=== PATIENT | female | born 1945 | race Caucasian/White ===

== ENCOUNTER 2019-06-24 11:38 | Inpatient (IN) ==
[2019-06-24] MEDS ORDERED: Naloxone 0.4 MG/ML INJ IVP PRN (14:19)
[2019-06-24 14:21] LABS: Basophils % 0.2 %; Hematocrit 31.5 % (35.3-44.9); Immature Granulocytes % 0.6 % (0-4); Lymphocytes # 0.6 K/mcL (0.6-4.6); Lymphocytes % 5.5 %; Mean Corpuscular HGB Conc 31.7 g/dL (31.6-35.5); Mean Corpuscular Hemoglobin 31.4 pg (28.0-33.3); Mean Corpuscular Volume 99.1 fL (83.0-100.0); Mean Platelet Volume 10.1 fL (9.4-12.4); Monocytes # 0.4 K/mcL (0.0-1.3); Neutrophils # 9.7 K/mcL (1.6-8.9); Platelet Count 215 K/mcL (140-400); Red Blood Count 3.18 M/mcL (3.82-4.97); Segmented Neutrophils % 89.7 %; White Blood Count 10.8 K/mcL (4.3-11.1)
[2019-06-24 14:44] LABS: Acetaminophen < 10 mcg/mL (10-20); Alanine Aminotransferase 30 Units/L (7-52); Albumin 3.9 g/dL (3.5-5.7); Albumin/Globulin Ratio 1.4 (1.1-2.2); Alkaline Phosphatase 116 Units/L (34-104); Aspartate Amino Transferase 31 Units/L (13-39); BUN/Creatinine Ratio 23 (6-26); Bilirubin,Total 0.4 mg/dL (0.3-1.0); Blood Urea Nitrogen 88 mg/dL (8-23); Calcium 8.7 mg/dL (8.6-10.3); Carbon Dioxide 17 mEq/L (23-29); Chloride 98 mEq/L (98-107); Ethanol < 10 mg/dL (Less than 10); Globulin 2.7 g/dL (2.4-3.5); Glucose 363 mg/dL (70-105); Osmolality,Calculated 312 (280-300); Potassium 4.2 mEq/L (3.5-5.1); Salicylate < 2.5 mg/dL (15.0-30.0); Sodium 130 mEq/L (136-145); Total Protein 6.6 g/dL (6.4-8.9); eGFR For African Americans 14 (> 60); eGFR For Non-African Americans 11 (> 60)
[2019-06-24] MEDS ORDERED: Insulin Regular, Human 100 UNIT/ML IV PRN (14:56)
[2019-06-24] MEDS ORDERED: *HR* Dextrose 50 % in Water (Syg) 50 ML SYRINGE IVP PRN (14:56)
[2019-06-24] MEDS ORDERED: D5% in 0.45% NACL 1,000 ML IVC PRN (14:56)
[2019-06-24] MEDS ORDERED: Insulin Human Regular 100 UNIT in 0.9 % Sodium Chloride 100 ML IVC SCH ×2 (15:00→18:00)
[2019-06-24] MEDS ORDERED: *HR* Heparin 5,000 UNIT/ML VIAL IVP PRN ×2 (16:25)
[2019-06-24] MEDS ORDERED: *HR* Heparin 5,000 UNIT/ML VIAL IVP ONE (16:25)
[2019-06-24 16:43] LABS: ABG Base Excess -5 mEq/L (-2 to 3); ABG HCO3 20 mEq/L (21-27); ABG Oxygen Saturation 94 % (95-98); ABG PCO2 35 mmHg (35-45); ABG PH 7.37 pH Units (7.32-7.45); ABG PO2 72 mmHg (85-104); ABG TCO2 21 mEq/L (20-26)
[2019-06-24 16:51] LABS: Bilirubin,Urine Negative (Negative); Blood,Urine Trace (Negative); Clarity,Urine Clear (Clear); Color,Urine Yellow (Yellow); Glucose,Urine (UA) 100 mg/dL (Normal); Ketones,Urine 15 mg/dL (Negative); Leukocyte Esterase,Urine Negative (Negative); Nitrite,Urine Negative (Negative); PH,Urine 5.5 pH Units (5.0-8.0); Protein,Urine 100 mg/dL (Neg-Trace); Specific Gravity,Urine 1.016 (1.010-1.025); Urobilinogen,Urine Normal (Normal)
[2019-06-24 16:54] LABS: Hematocrit 29.8 % (35.3-44.9); Hemoglobin 9.9 g/dL (11.5-15.4); Mean Corpuscular HGB Conc 33.2 g/dL (31.6-35.5); Mean Corpuscular Volume 96.4 fL (83.0-100.0); Mean Platelet Volume 10.1 fL (9.4-12.4); Platelet Count 199 K/mcL (140-400); Red Blood Count 3.09 M/mcL (3.82-4.97); Red Cell Distribution Width 12.8 % (11.5-14.5); White Blood Count 9.3 K/mcL (4.3-11.1)
[2019-06-24 16:54] LABS: Bacteria,Urine None Seen per hpf (None-Few); Hyaline Casts,Urine None Seen per lpf (None-Few); Squamous Epithelial Cell,Urine Moderate per lpf (None-Few); WBC,Urine 0-3 per hpf (0-3)
[2019-06-24 17:02] LABS: Heparin anti-factor XA UFH 0.04 IU/mL (0.30-0.70)
[2019-06-24 17:03] LABS: INR 0.9; Prothrombin Time 9.9 Seconds (9.4-12.1)
[2019-06-24] MEDS: Heparin 25,000 UNIT/250 ML D5W 25,000 UNIT/250 ML IV.SOLN IVC SCH (17:53)
[2019-06-24] MEDS ORDERED: D5% in 0.45% NACL w KCl 20 MEQ/1,000 ML MLS IVC PRN (17:59)
[2019-06-24] MEDS ORDERED: Aspirin 325 MG TABLET PO ONE (18:00)
[2019-06-24 19:26] LABS: Calcium 8.7 mg/dL (8.6-10.3)
[2019-06-24 22:24] LABS: Calcium 8.2 mg/dL (8.6-10.3); Potassium 3.9 mEq/L (3.5-5.1)
[2019-06-24 22:36] LABS: Troponin I 3.98 ng/mL (< 0.04)
[2019-06-24] MEDS: Melatonin 3 MG TABLET PO SCH (22:55)
[2019-06-24 23:22] LABS: Calcium 8.2 mg/dL (8.6-10.3); Potassium 4.6 mEq/L (3.5-5.1)
[2019-06-25 01:31] LABS: Calcium 8.2 mg/dL (8.6-10.3); Potassium 4.2 mEq/L (3.5-5.1)
[2019-06-25 03:03] LABS: Basophils % 0.3 %; Eosinophils # 0.1 K/mcL (0.0-0.6); Eosinophils % 0.9 %; Hematocrit 26.5 % (35.3-44.9); Hemoglobin 8.7 g/dL (11.5-15.4); Immature Granulocytes % 0.5 % (0-4); Lymphocytes # 1.6 K/mcL (0.6-4.6); Mean Corpuscular HGB Conc 32.8 g/dL (31.6-35.5); Mean Corpuscular Hemoglobin 31.9 pg (28.0-33.3); Mean Corpuscular Volume 97.1 fL (83.0-100.0); Monocytes # 0.8 K/mcL (0.0-1.3); Monocytes % 8.2 %; Neutrophils # 6.8 K/mcL (1.6-8.9); Platelet Count 157 K/mcL (140-400); Red Blood Count 2.73 M/mcL (3.82-4.97); Red Cell Distribution Width 12.9 % (11.5-14.5); Segmented Neutrophils % 73.1 %; White Blood Count 9.3 K/mcL (4.3-11.1)
[2019-06-25 03:25] LABS: Calcium 7.9 mg/dL (8.6-10.3); Chol/HDL Ratio 2.8 (0-4.9); Potassium 4.3 mEq/L (3.5-5.1)
[2019-06-25] MEDS: Diltiazem CD (24hr) 180 MG CAPSULE PO SCH (07:12)
[2019-06-25] MEDS: Aspirin Enteric Coated 81 MG Tablet PO SCH (07:12)
[2019-06-25 08:10] LABS: Estimated Average Glucose 220 mg/dl
[2019-06-25] MEDS ORDERED: Dextrose Gel 15 GM/37.5 ML TUBE PO PRN ×2 (09:15→14:30)
[2019-06-25] MEDS ORDERED: Dextrose Gel 15 GM/37.5 ML TUBE PO ONE (09:15)
[2019-06-25] MEDS ORDERED: Perflutren Lipid Microsphere 1.3 ML in 0.9 % Sodium Chloride 8.7 ML IVP ONE (11:30)
[2019-06-25] MEDS ORDERED: Perflutren Lipid Microsphere 2 ML VIAL ONE (11:39)
[2019-06-25 12:59] LABS: Hematocrit 28.9 % (35.3-44.9); Hemoglobin 9.5 g/dL (11.5-15.4)
[2019-06-25] MEDS ORDERED: D5% in Water 1,000 ML IVC PRN (14:30)
[2019-06-25] MEDS: Insulin LISPRO 300 UNITS/3 ML VIAL SQ SCH ×2 (17:07→20:40)
[2019-06-25] MEDS: Insulin DETEMIR 100 UNIT/ML X5UNITS SQ SCH (20:46)
[2019-06-25] MEDS: Melatonin 3 MG TABLET PO SCH (23:54)
[2019-06-26 05:05] LABS: Basophils # 0.1 K/mcL (0.0-0.2); Basophils % 0.9 %; Eosinophils # 0.3 K/mcL (0.0-0.6); Eosinophils % 4.7 %; Hemoglobin 9.3 g/dL (11.5-15.4); Immature Granulocytes % 0.5 % (0-4); Lymphocytes # 1.7 K/mcL (0.6-4.6); Mean Corpuscular HGB Conc 32.1 g/dL (31.6-35.5); Mean Corpuscular Hemoglobin 31.7 pg (28.0-33.3); Mean Platelet Volume 10.4 fL (9.4-12.4); Monocytes # 0.7 K/mcL (0.0-1.3); Monocytes % 10.4 %; Neutrophils # 3.9 K/mcL (1.6-8.9); Platelet Count 153 K/mcL (140-400); Red Blood Count 2.93 M/mcL (3.82-4.97); Red Cell Distribution Width 13.3 % (11.5-14.5); Segmented Neutrophils % 58.5 %; White Blood Count 6.7 K/mcL (4.3-11.1)
[2019-06-26 05:21] LABS: Potassium 4.8 mEq/L (3.5-5.1)
[2019-06-26] MEDS: Heparin 25,000 UNIT/250 ML D5W 25,000 UNIT/250 ML IV.SOLN IVC SCH (06:45)
[2019-06-26] MEDS: Diltiazem CD (24hr) 180 MG CAPSULE PO SCH (07:47)
[2019-06-26] MEDS: Aspirin Enteric Coated 81 MG Tablet PO SCH (07:47)
[2019-06-26] MEDS: Insulin LISPRO 300 UNITS/3 ML VIAL SQ SCH ×4 (07:49→21:30)
[2019-06-26] MEDS: Isosorbide MONOnitrate (24 HR) 60 MG TAB.ER.24H PO SCH (11:47)
[2019-06-26] MEDS ORDERED: Heparin 25,000 UNIT/250 ML D5W 25,000 UNIT/250 ML IV.SOLN IVC SCH (12:45)
[2019-06-26] MEDS ORDERED: Ondansetron 4 MG/2 ML VIAL IVP PRN (16:46)
[2019-06-26] MEDS: Melatonin 3 MG TABLET PO SCH (21:07)
[2019-06-26] MEDS: Insulin DETEMIR 100 UNIT/ML X5UNITS SQ SCH (21:07)
[2019-06-27 05:01] LABS: Basophils # 0.1 K/mcL (0.0-0.2); Basophils % 0.9 %; Eosinophils # 0.4 K/mcL (0.0-0.6); Eosinophils % 6.6 %; Hemoglobin 9.6 g/dL (11.5-15.4); Immature Granulocytes % 0.2 % (0-4); Lymphocytes # 1.5 K/mcL (0.6-4.6); Mean Corpuscular Hemoglobin 31.2 pg (28.0-33.3); Mean Corpuscular Volume 97.4 fL (83.0-100.0); Mean Platelet Volume 10.6 fL (9.4-12.4); Monocytes # 0.8 K/mcL (0.0-1.3); Monocytes % 11.9 %; Neutrophils # 3.8 K/mcL (1.6-8.9); Platelet Count 159 K/mcL (140-400); Red Blood Count 3.08 M/mcL (3.82-4.97); Red Cell Distribution Width 13.4 % (11.5-14.5); Segmented Neutrophils % 57.4 %; White Blood Count 6.5 K/mcL (4.3-11.1)
[2019-06-27 05:16] LABS: Calcium 8.2 mg/dL (8.6-10.3); Potassium 4.8 mEq/L (3.5-5.1)
[2019-06-27] MEDS ORDERED: Acetaminophen 325 MG TABLET PO PRN (06:17)
[2019-06-27] MEDS: Aspirin Enteric Coated 81 MG Tablet PO SCH (07:21)
[2019-06-27] MEDS: Isosorbide MONOnitrate (24 HR) 60 MG TAB.ER.24H PO SCH (07:21)
[2019-06-27] MEDS: Insulin LISPRO 300 UNITS/3 ML VIAL SQ SCH ×3 (07:24→16:21)
[2019-06-27] MEDS: Melatonin 3 MG TABLET PO SCH (20:27)
[2019-06-28 01:47] LABS: Calcium 8.4 mg/dL (8.6-10.3); Potassium 5.2 mEq/L (3.5-5.1)
[2019-06-28] MEDS: Aspirin Enteric Coated 81 MG Tablet PO SCH (08:16)
[2019-06-28] MEDS: Isosorbide MONOnitrate (24 HR) 60 MG TAB.ER.24H PO SCH (08:16)
[2019-06-28] MEDS ORDERED: NON-FORMULARY MEDICATION 1 EACH EACH (Subcutaneous Insulin Pump [T:Slim] 1 EACH) SQ PRN (09:00)
[2019-06-28] MEDS ORDERED: Insulin DETEMIR 100 UNIT/ML X5UNITS SQ SCH (09:00)
[2019-06-28 11:09] VITALS: BP 133/77
[2019-06-28] MEDS ORDERED: FLU Vac QV 19-20 (6Month+)/PF 0.5 ML SYRINGE IM ONE (16:49)
== END 2019-06-28 17:36 | disposition home or self-care (01) | DRG 280 ==
LOC: 2NNU → SUATTDRO 13:29
PROVIDERS: ADMIT Internal Medicine; ATTEND Internal Medicine

== ENCOUNTER 2019-08-14 16:28 | Observation (INO) ==
[2019-08-14] MEDS ORDERED: Insulin Regular, Human 100 UNIT/ML IV PRN (18:23)
[2019-08-14] MEDS ORDERED: D5% in 0.45% NACL 1,000 ML IVC PRN (18:33)
[2019-08-14] MEDS ORDERED: D5% in 0.45% NACL w KCl 20 MEQ/1,000 ML MLS IVC PRN (18:33)
[2019-08-14] MEDS ORDERED: D5% in 0.45% NACL w KCl 20 MEQ/1,000 ML MLS IVC ONE (18:38)
[2019-08-14 19:03] LABS: Basophils # 0.1 K/mcL (0.0-0.2); Basophils % 0.9 %; Hematocrit 26.6 % (35.3-44.9); Hemoglobin 9.2 g/dL (11.5-15.4); Immature Granulocytes % 0.4 % (0-4); Lymphocytes # 1.6 K/mcL (0.6-4.6); Lymphocytes % 19.1 %; Mean Corpuscular HGB Conc 34.6 g/dL (31.6-35.5); Mean Corpuscular Hemoglobin 31.7 pg (28.0-33.3); Mean Platelet Volume 9.6 fL (9.4-12.4); Monocytes # 0.9 K/mcL (0.0-1.3); Monocytes % 10.3 %; Neutrophils # 5.7 K/mcL (1.6-8.9); Platelet Count 223 K/mcL (140-400); Red Cell Distribution Width 13.1 % (11.5-14.5); Segmented Neutrophils % 69.3 %; White Blood Count 8.2 K/mcL (4.3-11.1)
[2019-08-14 19:05] LABS: Mean Corpuscular Volume 91.7 fL (83.0-100.0)
[2019-08-14] MEDS: Insulin Human Regular 100 UNIT in 0.9 % Sodium Chloride 100 ML IVC SCH (19:14)
[2019-08-14] MEDS: 0.9 % Sodium Chloride 1,000 ML IVC SCH ×6 (19:14→21:15)
[2019-08-14 19:22] LABS: Albumin 3.4 g/dL (3.5-5.7); Calcium 8.2 mg/dL (8.6-10.3); Phosphorous 3.2 mg/dL (2.7-4.5); Potassium 3.5 mEq/L (3.5-5.1)
[2019-08-14 19:40] LABS: Bilirubin,Urine Negative (Negative); Blood,Urine Negative (Negative); Clarity,Urine Clear (Clear); Color,Urine Yellow (Yellow); Glucose,Urine (UA) Normal (Normal); Ketones,Urine Negative (Negative); Leukocyte Esterase,Urine Trace (Negative); Nitrite,Urine Negative (Negative); Protein,Urine 30 mg/dL (Neg-Trace); Specific Gravity,Urine 1.006 (1.010-1.025); Urobilinogen,Urine Normal (Normal)
[2019-08-14 19:42] LABS: Bacteria,Urine None Seen per hpf (None-Few); Hyaline Casts,Urine None Seen per lpf (None-Few); RBC,Urine 0-3 per hpf (0-3); Squamous Epithelial Cell,Urine None Seen per lpf (None-Few); WBC,Urine 0-3 per hpf (0-3)
[2019-08-14] MEDS: Insulin DETEMIR 100 UNIT/ML X5UNITS SQ SCH (19:57)
[2019-08-14] MEDS ORDERED: *HR* Dextrose 50 % in Water (Syg) 50 ML SYRINGE IVP PRN (19:58)
[2019-08-14] MEDS ORDERED: Dextrose Gel 15 GM/37.5 ML TUBE PO PRN ×2 (19:58)
[2019-08-14] MEDS: Insulin LISPRO 300 UNITS/3 ML VIAL SQ SCH (21:11)
[2019-08-14] MEDS: Pantoprazole 40 MG VIAL IVP SCH (21:11)
[2019-08-14] MEDS: *HR* Dextrose 50 % in Water (Syg) 50 ML SYRINGE IVP PRN (23:53)
[2019-08-15 01:20] LABS: Estimated Average Glucose 237 mg/dl
[2019-08-15] MEDS ORDERED: 0.9 % Sodium Chloride 1,000 ML IVC SCH (04:00)
[2019-08-15] MEDS: D5% in Water 1,000 ML IVC PRN (04:25)
[2019-08-15] MEDS: *HR* Dextrose 50 % in Water (Syg) 50 ML SYRINGE IVP PRN (04:29)
[2019-08-15 06:05] LABS: VBG HCO3 24 mEq/L (21-27); VBG PCO2 39 mmHg (41-51); VBG PO2 212 mmHg (25-50)
[2019-08-15 06:05] LABS: Basophils % 0.6 %; Eosinophils % 0.1 %; Hematocrit 27.8 % (35.3-44.9); Hemoglobin 9.4 g/dL (11.5-15.4); Immature Granulocytes % 0.4 % (0-4); Lymphocytes # 1.1 K/mcL (0.6-4.6); Lymphocytes % 16.5 %; Mean Corpuscular HGB Conc 33.8 g/dL (31.6-35.5); Mean Corpuscular Hemoglobin 30.8 pg (28.0-33.3); Mean Corpuscular Volume 91.1 fL (83.0-100.0); Mean Platelet Volume 9.5 fL (9.4-12.4); Monocytes # 0.5 K/mcL (0.0-1.3); Monocytes % 7.8 %; Neutrophils # 5.2 K/mcL (1.6-8.9); Platelet Count 216 K/mcL (140-400); Red Blood Count 3.05 M/mcL (3.82-4.97); Red Cell Distribution Width 13.2 % (11.5-14.5); Segmented Neutrophils % 74.6 %; White Blood Count 6.9 K/mcL (4.3-11.1)
[2019-08-15 06:31] LABS: Albumin 3.3 g/dL (3.5-5.7); Albumin/Globulin Ratio 1.3 (1.1-2.2); Bilirubin,Total 0.4 mg/dL (0.3-1.0); Calcium 8.2 mg/dL (8.6-10.3); Globulin 2.5 g/dL (2.4-3.5); Potassium 3.6 mEq/L (3.5-5.1); Total Protein 5.8 g/dL (6.4-8.9)
[2019-08-15] MEDS: Insulin LISPRO 300 UNITS/3 ML VIAL SQ SCH ×3 (08:28→15:39)
[2019-08-15] MEDS: carvediloL 6.25 MG TABLET PO SCH ×2 (08:31→16:51)
[2019-08-15] MEDS: Pantoprazole 40 MG VIAL IVP SCH ×2 (08:31→19:38)
[2019-08-15] MEDS ORDERED: Furosemide 20 MG TABLET PO SCH (09:00)
[2019-08-15] MEDS ORDERED: *HR* Propofol 200 MG/20 ML VIAL IVP ONE (14:24)
[2019-08-15 15:04] LABS: Hematocrit 30.2 % (35.3-44.9); Hemoglobin 10.2 g/dL (11.5-15.4)
[2019-08-15] MEDS ORDERED: hydrALAZINE 25 MG TABLET PO PRN (15:27)
[2019-08-15] MEDS ORDERED: SODIUM CHLORIDE/NAHCO3/KCL/PEG 4,000 ML SOLN.RECON PO ONE (17:00)
[2019-08-15] MEDS: Insulin Human Regular 100 UNIT in 0.9 % Sodium Chloride 100 ML IVC SCH (18:57)
[2019-08-15] MEDS ORDERED: Ondansetron 4 MG/2 ML VIAL IVP PRN (20:55)
[2019-08-15] MEDS: Insulin DETEMIR 100 UNIT/ML X5UNITS SQ SCH (20:58)
[2019-08-15] MEDS ORDERED: Insulin DETEMIR 100 UNIT/ML X5UNITS SQ SCH (21:00)
[2019-08-16] MEDS: *HR* Dextrose 50 % in Water (Syg) 50 ML SYRINGE IVP PRN ×5 (03:04→09:31)
[2019-08-16 04:21] LABS: Basophils # 0.1 K/mcL (0.0-0.2); Basophils % 1.2 %; Eosinophils % 0.1 %; Hematocrit 30.4 % (35.3-44.9); Hemoglobin 10.1 g/dL (11.5-15.4); Immature Granulocytes % 0.1 % (0-4); Lymphocytes # 1.4 K/mcL (0.6-4.6); Lymphocytes % 20.1 %; Mean Corpuscular HGB Conc 33.2 g/dL (31.6-35.5); Mean Corpuscular Volume 93.3 fL (83.0-100.0); Monocytes # 0.7 K/mcL (0.0-1.3); Monocytes % 10.3 %; Neutrophils # 4.7 K/mcL (1.6-8.9); Platelet Count 230 K/mcL (140-400); Red Blood Count 3.26 M/mcL (3.82-4.97); Red Cell Distribution Width 13.5 % (11.5-14.5); Segmented Neutrophils % 68.2 %; White Blood Count 6.9 K/mcL (4.3-11.1)
[2019-08-16 04:29] LABS: Prothrombin Time 11.1 Seconds (9.4-12.1)
[2019-08-16 04:46] LABS: Calcium 8.5 mg/dL (8.6-10.3); Potassium 3.4 mEq/L (3.5-5.1)
[2019-08-16] MEDS: Insulin LISPRO 300 UNITS/3 ML VIAL SQ SCH ×3 (07:58→17:36)
[2019-08-16] MEDS: carvediloL 6.25 MG TABLET PO SCH ×2 (08:05→16:50)
[2019-08-16] MEDS: Pantoprazole 40 MG VIAL IVP SCH ×2 (08:05→21:34)
[2019-08-16] MEDS: D5% in Water 1,000 ML IVC PRN (12:03)
[2019-08-16] MEDS ORDERED: *HR* Propofol 200 MG/20 ML VIAL IVP ONE (13:48)
[2019-08-16] MEDS ORDERED: Lidocaine -MPF 2% 2 ML VIAL ONE (13:49)
[2019-08-16] MEDS: Isosorbide MONOnitrate (24 HR) 60 MG TAB.ER.24H PO SCH (16:51)
[2019-08-16] MEDS ORDERED: NON-FORMULARY MEDICATION 1 EACH EACH (Ubidecarenone/Vit E Acetate [Co Q-10 100 Mg Softgel] PO SCH (18:00)
[2019-08-16] MEDS ORDERED: VIT A PO SCH (18:00)
[2019-08-16] MEDS ORDERED: SELENIUM PO SCH (18:00)
[2019-08-16] MEDS ORDERED: [UNRECOGNIZED DRUG - OTHER] PO SCH (18:00)
[2019-08-16] MEDS ORDERED: ZINC PO SCH (18:00)
[2019-08-16] MEDS ORDERED: COPPER PO SCH (18:00)
[2019-08-16] MEDS: Aspirin Enteric Coated 81 MG Tablet PO SCH (18:17)
[2019-08-16] MEDS: Cyanocobalamin (B-12) 1,000 MCG TABLET PO SCH (18:17)
[2019-08-16] MEDS: Melatonin 3 MG TABLET PO SCH (21:33)
[2019-08-16] MEDS: Insulin DETEMIR 100 UNIT/ML X5UNITS SQ SCH (21:33)
[2019-08-17] MEDS ORDERED: Acetaminophen 325 MG TABLET PO PRN (00:13)
[2019-08-17 03:20] LABS: Basophils # 0.1 K/mcL (0.0-0.2); Basophils % 0.3 %; Hematocrit 28.1 % (35.3-44.9); Immature Granulocytes % 1.2 % (0-4); Lymphocytes # 0.6 K/mcL (0.6-4.6); Mean Corpuscular Hemoglobin 31.4 pg (28.0-33.3); Mean Corpuscular Volume 97.9 fL (83.0-100.0); Mean Platelet Volume 10.4 fL (9.4-12.4); Monocytes # 0.8 K/mcL (0.0-1.3); Neutrophils # 18.3 K/mcL (1.6-8.9); Platelet Count 184 K/mcL (140-400); Red Blood Count 2.87 M/mcL (3.82-4.97); Red Cell Distribution Width 13.6 % (11.5-14.5); Segmented Neutrophils % 91.5 %
[2019-08-17 03:38] LABS: Potassium 3.9 mEq/L (3.5-5.1)
[2019-08-17] MEDS: Lactobacillus 1 EACH CAP.SPRINK PO SCH (08:12)
[2019-08-17] MEDS: Ascorbic Acid 500 MG TABLET PO SCH (08:12)
[2019-08-17] MEDS: carvediloL 6.25 MG TABLET PO SCH ×2 (08:13→16:46)
[2019-08-17] MEDS: Isosorbide MONOnitrate (24 HR) 60 MG TAB.ER.24H PO SCH (08:13)
[2019-08-17] MEDS: Insulin LISPRO 300 UNITS/3 ML VIAL SQ SCH ×3 (08:13→16:40)
[2019-08-17] MEDS: Pantoprazole 40 MG VIAL IVP SCH (08:13)
[2019-08-17] MEDS: Multivit/Ca/Min/Fe/FA 1 TAB TABLET PO SCH (08:13)
[2019-08-17] MEDS ORDERED: CALCIUM CARB PO SCH (09:00)
[2019-08-17] MEDS ORDERED: D3 PO SCH (09:00)
[2019-08-17] MEDS ORDERED: CRANBERRY FRUIT 400 MG PO SCH (09:00)
[2019-08-17] MEDS ORDERED: MAGNESIUM PO SCH (09:00)
[2019-08-17] MEDS ORDERED: ZINC PO SCH (09:00)
[2019-08-17] MEDS ORDERED: [UNRECOGNIZED DRUG - OTHER] PO SCH (09:00)
[2019-08-17 10:04] LABS: Bilirubin,Urine Negative (Negative); Blood,Urine Negative (Negative); Clarity,Urine Clear (Clear); Color,Urine Yellow (Yellow); Glucose,Urine (UA) Normal (Normal); Ketones,Urine Negative (Negative); Leukocyte Esterase,Urine Negative (Negative); Nitrite,Urine Negative (Negative); Protein,Urine 100 mg/dL (Neg-Trace); Specific Gravity,Urine 1.013 (1.010-1.025); Urobilinogen,Urine Normal (Normal)
[2019-08-17 10:07] LABS: Bacteria,Urine None Seen per hpf (None-Few); Hyaline Casts,Urine None Seen per lpf (None-Few); Squamous Epithelial Cell,Urine None Seen per lpf (None-Few); WBC,Urine 0-3 per hpf (0-3)
[2019-08-17] MEDS ORDERED: Azithromycin 250 MG TABLET PO ONE (16:09)
[2019-08-17] MEDS: Cyanocobalamin (B-12) 1,000 MCG TABLET PO SCH (16:46)
[2019-08-17] MEDS: Aspirin Enteric Coated 81 MG Tablet PO SCH (16:46)
[2019-08-17] MEDS: Melatonin 3 MG TABLET PO SCH (20:16)
[2019-08-17] MEDS: Insulin DETEMIR 100 UNIT/ML X5UNITS SQ SCH (20:17)
[2019-08-17] MEDS ORDERED: Insulin LISPRO 300 UNITS/3 ML VIAL SQ SCH (21:45)
[2019-08-18 01:52] LABS: Basophils % 0.3 %; Eosinophils % 0.1 %; Hematocrit 25.1 % (35.3-44.9); Hemoglobin 8.3 g/dL (11.5-15.4); Immature Granulocytes % 0.5 % (0-4); Lymphocytes # 1.7 K/mcL (0.6-4.6); Lymphocytes % 13.9 %; Mean Corpuscular HGB Conc 33.1 g/dL (31.6-35.5); Mean Corpuscular Hemoglobin 31.8 pg (28.0-33.3); Mean Corpuscular Volume 96.2 fL (83.0-100.0); Mean Platelet Volume 10.7 fL (9.4-12.4); Monocytes % 7.7 %; Neutrophils # 9.5 K/mcL (1.6-8.9); Platelet Count 149 K/mcL (140-400); Red Blood Count 2.61 M/mcL (3.82-4.97); Red Cell Distribution Width 13.6 % (11.5-14.5); Segmented Neutrophils % 77.5 %; White Blood Count 12.3 K/mcL (4.3-11.1)
[2019-08-18] MEDS ORDERED: Azithromycin 250 MG TABLET PO SCH (09:00)
[2019-08-18 09:56] LABS: Hematocrit 26.8 % (35.3-44.9); Hemoglobin 8.9 g/dL (11.5-15.4)
[2019-08-18] MEDS: Insulin LISPRO 300 UNITS/3 ML VIAL SQ SCH (10:04)
[2019-08-18] MEDS: Lactobacillus 1 EACH CAP.SPRINK PO SCH (10:13)
[2019-08-18] MEDS: Isosorbide MONOnitrate (24 HR) 60 MG TAB.ER.24H PO SCH (10:13)
[2019-08-18] MEDS: Ascorbic Acid 500 MG TABLET PO SCH (10:13)
[2019-08-18] MEDS: Multivit/Ca/Min/Fe/FA 1 TAB TABLET PO SCH (10:13)
[2019-08-18] MEDS: carvediloL 6.25 MG TABLET PO SCH (10:13)
[2019-08-18 10:39] VITALS: BP 166/75
== END 2019-08-18 12:00 | disposition home or self-care (01) ==
LOC: ICNU → SUATTDRO 18:01 → ICNU 18:26 → 3NENU 22:01
PROVIDERS: ADMIT Family Medicine; ATTEND Internal Medicine

== ENCOUNTER 2019-08-19 11:49 | Inpatient (IN) ==
[2019-08-19] MEDS ORDERED: Insulin Regular, Human 100 UNIT/ML IV PRN (14:36)
[2019-08-19] MEDS ORDERED: D5% in 0.45% NACL 1,000 ML IVC PRN (14:36)
[2019-08-19] MEDS ORDERED: *HR* Dextrose 50 % in Water (Syg) 50 ML SYRINGE IVP PRN (14:36)
[2019-08-19] MEDS ORDERED: Insulin Human Regular 100 UNIT in 0.9 % Sodium Chloride 100 ML IVC SCH (14:45)
[2019-08-19] MEDS ORDERED: *HR* Heparin 5,000 UNIT/ML VIAL IVP PRN (14:50)
[2019-08-19] MEDS ORDERED: Naloxone 0.4 MG/ML INJ IVP PRN (15:09)
[2019-08-19 15:27] LABS: Basophils % 0.2 %; Hematocrit 26.7 % (35.3-44.9); Hemoglobin 9.1 g/dL (11.5-15.4); Immature Granulocytes % 0.4 % (0-4); Lymphocytes # 0.9 K/mcL (0.6-4.6); Lymphocytes % 7.2 %; Mean Corpuscular HGB Conc 34.1 g/dL (31.6-35.5); Mean Corpuscular Hemoglobin 32.4 pg (28.0-33.3); Mean Platelet Volume 11.1 fL (9.4-12.4); Monocytes # 0.8 K/mcL (0.0-1.3); Monocytes % 6.4 %; Neutrophils # 10.8 K/mcL (1.6-8.9); Platelet Count 191 K/mcL (140-400); Red Blood Count 2.81 M/mcL (3.82-4.97); Red Cell Distribution Width 13.1 % (11.5-14.5); Segmented Neutrophils % 85.8 %; White Blood Count 12.6 K/mcL (4.3-11.1)
[2019-08-19 15:32] LABS: Heparin anti-factor XA UFH 0.27 IU/mL (0.30-0.70); Prothrombin Time 10.9 Seconds (9.4-12.1)
[2019-08-19] MEDS: Heparin 25,000 UNIT/250 ML D5W 25,000 UNIT/250 ML IV.SOLN IVC SCH (15:35)
[2019-08-19 15:47] LABS: Calcium 8.4 mg/dL (8.6-10.3); Potassium 3.6 mEq/L (3.5-5.1)
[2019-08-19 16:08] LABS: ABG Base Excess -1 mEq/L (-2 to 3); ABG HCO3 24 mEq/L (21-27); ABG Oxygen Saturation 93 % (95-98); ABG PCO2 35 mmHg (35-45); ABG PH 7.43 pH Units (7.32-7.45); ABG PO2 65 mmHg (85-104); ABG TCO2 25 mEq/L (20-26)
[2019-08-19] MEDS: 0.9 % Sodium Chloride w KCl 20 MEQ/1,000 ML MLS IVC SCH ×2 (16:21→21:46)
[2019-08-19] MEDS ORDERED: carvediloL 6.25 MG TABLET PO SCH (17:00)
[2019-08-19] MEDS: D5% in 0.45% NACL w KCl 20 MEQ/1,000 ML MLS IVC PRN (17:38)
[2019-08-19] MEDS: Insulin Human Regular 100 UNIT in 0.9 % Sodium Chloride 100 ML IVC SCH (17:45)
[2019-08-19] MEDS ORDERED: Perflutren Lipid Microsphere 1.3 ML in 0.9 % Sodium Chloride 8.7 ML IVP ONE (18:26)
[2019-08-19] MEDS: *HR* Heparin 5,000 UNIT/ML VIAL IVP PRN (19:06)
[2019-08-19 19:55] LABS: VBG Base Excess -3 mEq/L; VBG Chloride 101 mEq/L (98-107); VBG Glucose 118 mg/dl (65-95); VBG HCO3 22 mEq/L (21-27); VBG Ionized Calcium 1.11 mmol/L (1.15-1.35); VBG Oxygen Saturation 99 %; VBG PCO2 38 mmHg (41-51); VBG PH 7.38 pH Units (7.32-7.42); VBG PO2 123 mmHg (25-50); VBG Total CO2 23 mEq/L
[2019-08-19 20:15] LABS: Calcium 8.2 mg/dL (8.6-10.3); Potassium 4.1 mEq/L (3.5-5.1)
[2019-08-19 20:20] LABS: Troponin I 8.37 ng/mL (< 0.04)
[2019-08-19 23:23] LABS: Hematocrit 25.2 % (35.3-44.9); Hemoglobin 8.4 g/dL (11.5-15.4)
[2019-08-20 01:52] LABS: Hematocrit 25.2 % (35.3-44.9); Hemoglobin 8.6 g/dL (11.5-15.4)
[2019-08-20 02:10] LABS: Calcium 7.9 mg/dL (8.6-10.3)
[2019-08-20] MEDS: D5% in 0.45% NACL w KCl 20 MEQ/1,000 ML MLS IVC PRN ×2 (04:36→11:25)
[2019-08-20] MEDS ORDERED: Isosorbide MONOnitrate (24 HR) 60 MG TAB.ER.24H PO SCH (09:00)
[2019-08-20 09:19] LABS: Hematocrit 23.9 % (35.3-44.9); Hemoglobin 8.2 g/dL (11.5-15.4)
[2019-08-20] MEDS: 0.9 % Sodium Chloride w KCl 20 MEQ/1,000 ML MLS IVC SCH ×6 (09:28→15:15)
[2019-08-20 09:39] LABS: Calcium 7.7 mg/dL (8.6-10.3); Potassium 4.7 mEq/L (3.5-5.1)
[2019-08-20] MEDS: Pantoprazole 40 MG VIAL IVP SCH (09:43)
[2019-08-20] MEDS ORDERED: Insulin DETEMIR 100 UNIT/ML X5UNITS SQ ONE (10:33)
[2019-08-20] MEDS ORDERED: D5% in Water 1,000 ML IVC PRN (10:34)
[2019-08-20] MEDS ORDERED: Dextrose Gel 15 GM/37.5 ML TUBE PO PRN ×2 (10:34)
[2019-08-20] MEDS: Insulin LISPRO 300 UNITS/3 ML VIAL SQ SCH ×3 (11:01→19:50)
[2019-08-20] MEDS: Furosemide 20 MG TABLET PO SCH (11:52)
[2019-08-20] MEDS: Aspirin Enteric Coated 81 MG Tablet PO SCH (11:52)
[2019-08-20] MEDS: Azithromycin 250 MG TABLET PO SCH (11:52)
[2019-08-20] MEDS: Insulin Human Regular 100 UNIT in 0.9 % Sodium Chloride 100 ML IVC SCH (15:14)
[2019-08-20 16:23] LABS: Hematocrit 24.7 % (35.3-44.9); Hemoglobin 8.3 g/dL (11.5-15.4)
[2019-08-20] MEDS: hydrALAZINE 10 MG TABLET PO SCH (17:02)
[2019-08-20] MEDS ORDERED: Acetaminophen 325 MG TABLET PO PRN (17:03)
[2019-08-21 00:29] LABS: Hematocrit 23.8 % (35.3-44.9); Hemoglobin 7.9 g/dL (11.5-15.4)
[2019-08-21] MEDS: hydrALAZINE 10 MG TABLET PO SCH ×3 (00:43→17:28)
[2019-08-21 02:00] LABS: Basophils # 0.1 K/mcL (0.0-0.2); Basophils % 0.4 %; Eosinophils % 0.1 %; Hematocrit 26.2 % (35.3-44.9); Hemoglobin 8.3 g/dL (11.5-15.4); Immature Granulocytes % 0.7 % (0-4); Lymphocytes # 1.6 K/mcL (0.6-4.6); Lymphocytes % 11.4 %; Mean Corpuscular HGB Conc 31.7 g/dL (31.6-35.5); Mean Corpuscular Hemoglobin 30.7 pg (28.0-33.3); Mean Platelet Volume 10.7 fL (9.4-12.4); Monocytes # 1.7 K/mcL (0.0-1.3); Neutrophils # 10.7 K/mcL (1.6-8.9); Platelet Count 176 K/mcL (140-400); Red Cell Distribution Width 14.2 % (11.5-14.5); Segmented Neutrophils % 75.4 %; White Blood Count 14.2 K/mcL (4.3-11.1)
[2019-08-21 02:14] LABS: Calcium 7.8 mg/dL (8.6-10.3); Magnesium 1.8 mg/dL (1.6-2.6); Potassium 4.5 mEq/L (3.5-5.1)
[2019-08-21 02:18] LABS: Platelet Estimate Normal (Normal)
[2019-08-21] MEDS: *HR* Heparin 5,000 UNIT/ML VIAL IVP PRN ×2 (05:39→19:53)
[2019-08-21] MEDS: Heparin 25,000 UNIT/250 ML D5W 25,000 UNIT/250 ML IV.SOLN IVC SCH (05:40)
[2019-08-21] MEDS: Pantoprazole 40 MG VIAL IVP SCH (08:08)
[2019-08-21] MEDS: Furosemide 20 MG TABLET PO SCH (08:08)
[2019-08-21] MEDS: Azithromycin 250 MG TABLET PO SCH (08:08)
[2019-08-21] MEDS: Metoprolol XL (24 HR) Succ 25 MG TAB.ER.24H PO SCH (08:08)
[2019-08-21] MEDS: Insulin LISPRO 300 UNITS/3 ML VIAL SQ SCH ×4 (08:08→21:01)
[2019-08-21] MEDS: Aspirin Enteric Coated 81 MG Tablet PO SCH (08:08)
[2019-08-21 08:18] LABS: Hematocrit 25.8 % (35.3-44.9); Hemoglobin 8.2 g/dL (11.5-15.4)
[2019-08-21] MEDS ORDERED: Insulin DETEMIR 100 UNIT/ML X5UNITS SQ SCH ×3 (09:00→21:00)
[2019-08-21] MEDS ORDERED: Tolvaptan 15 MG TABLET PO ONE (10:11)
[2019-08-21 10:30] LABS: Bilirubin,Urine Negative (Negative); Blood,Urine Trace (Negative); Clarity,Urine Cloudy (Clear); Color,Urine Yellow (Yellow); Glucose,Urine (UA) 100 mg/dL (Normal); Ketones,Urine Negative (Negative); Leukocyte Esterase,Urine Trace (Negative); Nitrite,Urine Negative (Negative); PH,Urine 5.5 pH Units (5.0-8.0); Protein,Urine 30 mg/dL (Neg-Trace); Specific Gravity,Urine 1.012 (1.010-1.025); Urobilinogen,Urine Normal (Normal)
[2019-08-21 10:32] LABS: Bacteria,Urine None Seen per hpf (None-Few); Hyaline Casts,Urine Few per lpf (None-Few); Squamous Epithelial Cell,Urine Moderate per lpf (None-Few); WBC,Urine 0-3 per hpf (0-3)
[2019-08-21 10:41] LABS: RBC,Urine 0-3 per hpf (0-3)
[2019-08-21 16:35] LABS: Hematocrit 25.3 % (35.3-44.9); Hemoglobin 8.1 g/dL (11.5-15.4)
[2019-08-22] MEDS: Insulin LISPRO 300 UNITS/3 ML VIAL SQ SCH ×5 (00:38→23:57)
[2019-08-22] MEDS: hydrALAZINE 10 MG TABLET PO SCH ×4 (00:39→23:51)
[2019-08-22 01:42] LABS: Basophils % 0.3 %; Eosinophils % 0.2 %; Hematocrit 23.5 % (35.3-44.9); Hemoglobin 7.9 g/dL (11.5-15.4); Immature Granulocytes % 0.6 % (0-4); Lymphocytes # 1.2 K/mcL (0.6-4.6); Lymphocytes % 9.8 %; Mean Corpuscular HGB Conc 33.6 g/dL (31.6-35.5); Mean Corpuscular Hemoglobin 31.5 pg (28.0-33.3); Mean Corpuscular Volume 93.6 fL (83.0-100.0); Mean Platelet Volume 11.6 fL (9.4-12.4); Monocytes # 1.3 K/mcL (0.0-1.3); Monocytes % 10.2 %; Neutrophils # 9.8 K/mcL (1.6-8.9); Platelet Count 183 K/mcL (140-400); Red Blood Count 2.51 M/mcL (3.82-4.97); Segmented Neutrophils % 78.9 %; White Blood Count 12.5 K/mcL (4.3-11.1)
[2019-08-22 02:06] LABS: Calcium 7.7 mg/dL (8.6-10.3); Potassium 4.6 mEq/L (3.5-5.1)
[2019-08-22 02:08] LABS: Uric Acid 7.7 mg/dL (2.3-7.6)
[2019-08-22] MEDS ORDERED: Insulin Regular, Human 100 UNIT/ML IV ONE (04:37)
[2019-08-22] MEDS ORDERED: Insulin Human Regular 4 UNIT in 0.9 % Sodium Chloride 10 ML IV ONE (04:45)
[2019-08-22] MEDS: Azithromycin 250 MG TABLET PO SCH (08:22)
[2019-08-22] MEDS: Pantoprazole 40 MG VIAL IVP SCH (08:22)
[2019-08-22] MEDS: Heparin 25,000 UNIT/250 ML D5W 25,000 UNIT/250 ML IV.SOLN IVC SCH (08:23)
[2019-08-22] MEDS: Aspirin Enteric Coated 81 MG Tablet PO SCH (08:23)
[2019-08-22] MEDS: Metoprolol XL (24 HR) Succ 25 MG TAB.ER.24H PO SCH (08:23)
[2019-08-22] MEDS ORDERED: 0.45 % Sodium Chloride 250 ML IVC SCH ×2 (09:00)
[2019-08-22] MEDS ORDERED: 0.9 % Sodium Chloride 250 ML ONE (10:46)
[2019-08-22] MEDS ORDERED: Insulin DETEMIR 100 UNIT/ML X5UNITS SQ ONE (11:12)
[2019-08-22] MEDS ORDERED: *HR* Dextrose 50 % in Water (Syg) 50 ML SYRINGE IVP PRN (14:26)
[2019-08-22 15:43] LABS: Hematocrit 28.3 % (35.3-44.9); Hemoglobin 9.4 g/dL (11.5-15.4)
[2019-08-22] MEDS ORDERED: Insulin LISPRO 300 UNITS/3 ML VIAL SQ SCH (21:00)
[2019-08-23] MEDS: *HR* Heparin 5,000 UNIT/ML VIAL IVP PRN (00:58)
[2019-08-23] MEDS: Insulin LISPRO 300 UNITS/3 ML VIAL SQ SCH ×4 (05:43→16:35)
[2019-08-23 07:39] LABS: Hematocrit 27.6 % (35.3-44.9); Mean Corpuscular HGB Conc 32.6 g/dL (31.6-35.5); Mean Corpuscular Hemoglobin 30.9 pg (28.0-33.3); Mean Corpuscular Volume 94.8 fL (83.0-100.0); Mean Platelet Volume 10.6 fL (9.4-12.4); Platelet Count 217 K/mcL (140-400); Red Blood Count 2.91 M/mcL (3.82-4.97); Red Cell Distribution Width 15.4 % (11.5-14.5); White Blood Count 10.5 K/mcL (4.3-11.1)
[2019-08-23] MEDS ORDERED: 0.45 % Sodium Chloride 250 ML IVC SCH (08:00)
[2019-08-23 08:04] LABS: Calcium 8.1 mg/dL (8.6-10.3); Potassium 4.4 mEq/L (3.5-5.1)
[2019-08-23] MEDS: hydrALAZINE 10 MG TABLET PO SCH ×3 (09:15→23:06)
[2019-08-23] MEDS: Pantoprazole 40 MG VIAL IVP SCH (09:15)
[2019-08-23] MEDS: Aspirin Enteric Coated 81 MG Tablet PO SCH (09:15)
[2019-08-23] MEDS: Metoprolol XL (24 HR) Succ 25 MG TAB.ER.24H PO SCH (09:15)
[2019-08-23] MEDS ORDERED: Insulin DETEMIR 100 UNIT/ML X5UNITS SQ ONE (14:34)
[2019-08-23 14:50] LABS: % Iron Saturation 6 % (15-50); Iron 13 mcg/dL (50-170); Transferrin 167 mg/dL (203-362)
[2019-08-23 15:00] LABS: Ferritin 264 ng/mL (10-120)
[2019-08-23 15:09] LABS: Folate > 22.3 ng/mL (3.0-16.0); Vitamin B12 > 1500 pg/mL (250-1100)
[2019-08-23] MEDS: Heparin 25,000 UNIT/250 ML D5W 25,000 UNIT/250 ML IV.SOLN IVC SCH ×2 (15:09→16:21)
[2019-08-24] MEDS: Insulin LISPRO 300 UNITS/3 ML VIAL SQ SCH ×4 (01:15→17:40)
[2019-08-24 06:12] LABS: Hematocrit 30.5 % (35.3-44.9); Hemoglobin 9.9 g/dL (11.5-15.4); Mean Corpuscular HGB Conc 32.5 g/dL (31.6-35.5); Mean Corpuscular Hemoglobin 29.8 pg (28.0-33.3); Mean Corpuscular Volume 91.9 fL (83.0-100.0); Platelet Count 295 K/mcL (140-400); Red Blood Count 3.32 M/mcL (3.82-4.97); Red Cell Distribution Width 15.1 % (11.5-14.5); White Blood Count 8.1 K/mcL (4.3-11.1)
[2019-08-24 06:32] LABS: Calcium 8.4 mg/dL (8.6-10.3); Potassium 4.3 mEq/L (3.5-5.1)
[2019-08-24] MEDS: Pantoprazole 40 MG VIAL IVP SCH (08:38)
[2019-08-24] MEDS: Aspirin Enteric Coated 81 MG Tablet PO SCH (08:38)
[2019-08-24] MEDS: hydrALAZINE 10 MG TABLET PO SCH ×3 (08:40→23:37)
[2019-08-24] MEDS: Metoprolol XL (24 HR) Succ 25 MG TAB.ER.24H PO SCH (09:11)
[2019-08-24] MEDS ORDERED: *HR* Heparin 10,000 UNIT/10 ML VIAL ONE (10:03)
[2019-08-24] MEDS ORDERED: ISOVUE-370 200 ML INFUS..BTL ONE (10:03)
[2019-08-24] MEDS ORDERED: 0.9 % Sodium Chloride 1,000 ML ONE ×2 (10:03→10:04)
[2019-08-24] MEDS ORDERED: Nitroglycerin 1,000 MCG/10 ML VIAL IV ONE (10:03)
[2019-08-24] MEDS ORDERED: Heparin 1,000 UNITS/500 mL 500 ML ONE (10:03)
[2019-08-24] MEDS: 0.45 % Sodium Chloride 250 ML IVC SCH ×3 (10:19→21:29)
[2019-08-24] MEDS ORDERED: *HR* FentaNYL (PF) 100 MCG/2 ML VIAL ONE (10:34)
[2019-08-24] MEDS ORDERED: *HR* Midazolam HCl 2 MG/2 ML VIAL ONE (10:34)
[2019-08-24] MEDS: *HR* Heparin 5,000 UNIT/ML VIAL SQ SCH (17:42)
[2019-08-25] MEDS: 0.45 % Sodium Chloride 250 ML IVC SCH (03:51)
[2019-08-25] MEDS: *HR* Heparin 5,000 UNIT/ML VIAL SQ SCH ×2 (04:50→17:34)
[2019-08-25 05:54] LABS: Basophils % 0.4 %; Eosinophils # 0.1 K/mcL (0.0-0.6); Eosinophils % 0.7 %; Hematocrit 30.6 % (35.3-44.9); Hemoglobin 9.8 g/dL (11.5-15.4); Immature Granulocytes % 0.8 % (0-4); Lymphocytes % 11.4 %; Mean Corpuscular Hemoglobin 30.1 pg (28.0-33.3); Mean Corpuscular Volume 93.9 fL (83.0-100.0); Mean Platelet Volume 10.1 fL (9.4-12.4); Monocytes # 0.6 K/mcL (0.0-1.3); Monocytes % 6.8 %; Neutrophils # 7.3 K/mcL (1.6-8.9); Platelet Count 312 K/mcL (140-400); Red Blood Count 3.26 M/mcL (3.82-4.97); Red Cell Distribution Width 15.1 % (11.5-14.5); Segmented Neutrophils % 79.9 %; White Blood Count 9.1 K/mcL (4.3-11.1)
[2019-08-25 06:15] LABS: Calcium 8.2 mg/dL (8.6-10.3); Potassium 5.2 mEq/L (3.5-5.1)
[2019-08-25] MEDS: Insulin LISPRO 300 UNITS/3 ML VIAL SQ SCH (07:12)
[2019-08-25] MEDS: hydrALAZINE 10 MG TABLET PO SCH ×2 (07:35→14:58)
[2019-08-25] MEDS: Metoprolol XL (24 HR) Succ 25 MG TAB.ER.24H PO SCH (07:35)
[2019-08-25] MEDS: Aspirin Enteric Coated 81 MG Tablet PO SCH (07:35)
[2019-08-25] MEDS: Pantoprazole 40 MG VIAL IVP SCH (07:40)
[2019-08-25] MEDS ORDERED: Insulin Human Regular 100 UNIT in 0.9 % Sodium Chloride 100 ML IVC SCH ×2 (07:45→08:00)
[2019-08-25] MEDS ORDERED: D5% in 0.45% NACL 1,000 ML IVC PRN (07:49)
[2019-08-25] MEDS ORDERED: Insulin Regular, Human 100 UNIT/ML IV PRN (07:49)
[2019-08-25] MEDS ORDERED: D5% in 0.45% NACL w KCl 20 MEQ/1,000 ML MLS IVC PRN (07:49)
[2019-08-25] MEDS ORDERED: 0.9 % Sodium Chloride w KCl 20 MEQ/1,000 ML MLS IVC SCH (08:00)
[2019-08-25] MEDS ORDERED: 0.9 % Sodium Chloride 1,000 ML IVC SCH (08:00)
[2019-08-25] MEDS ORDERED: Furosemide 40 MG TABLET PO ONE (09:00)
[2019-08-25 12:27] LABS: Potassium 4.1 mEq/L (3.5-5.1)
[2019-08-25] MEDS ORDERED: NON-FORMULARY MEDICATION 1 EACH EACH (Subcutaneous Insulin Pump [T:Slim] 1 EACH) SQ PRN (14:00)
[2019-08-25 19:31] LABS: Calcium 8.5 mg/dL (8.6-10.3); Potassium 4.7 mEq/L (3.5-5.1)
[2019-08-25 20:53] LABS: Calcium 8.3 mg/dL (8.6-10.3); Potassium 4.4 mEq/L (3.5-5.1)
[2019-08-25 22:23] LABS: Calcium 8.3 mg/dL (8.6-10.3); Potassium 4.8 mEq/L (3.5-5.1)
[2019-08-26] MEDS: hydrALAZINE 10 MG TABLET PO SCH ×2 (00:30→07:23)
[2019-08-26] MEDS: *HR* Heparin 5,000 UNIT/ML VIAL SQ SCH (04:19)
[2019-08-26] MEDS: Aspirin Enteric Coated 81 MG Tablet PO SCH (07:23)
[2019-08-26] MEDS: Metoprolol XL (24 HR) Succ 25 MG TAB.ER.24H PO SCH (07:23)
[2019-08-26] MEDS: Pantoprazole 40 MG VIAL IVP SCH (07:24)
[2019-08-26 11:52] VITALS: BP 151/79
== END 2019-08-26 13:45 | disposition home or self-care (01) | DRG 919 ==
LOC: 2NNU → SUATTDRO 13:43
PROVIDERS: ADMIT Internal Medicine; ATTEND Internal Medicine

== ENCOUNTER 2020-11-16 11:00 | Inpatient (IN) ==
[2020-11-16 12:04] LABS: Basophils % 0.3 %; Eosinophils % 0.2 %; Hematocrit 24.1 % (35.3-44.9); Hemoglobin 7.6 g/dL (11.5-15.4); Immature Granulocytes % 0.5 % (0-4); Lymphocytes # 0.6 K/mcL (0.6-4.6); Lymphocytes % 7.3 %; Mean Corpuscular HGB Conc 31.5 g/dL (31.6-35.5); Mean Corpuscular Hemoglobin 33.2 pg (28.0-33.3); Mean Corpuscular Volume 105.2 fL (83.0-100.0); Mean Platelet Volume 10.4 fL (9.4-12.4); Monocytes % 11.8 %; Neutrophils # 6.9 K/mcL (1.6-8.9); Platelet Count 269 K/mcL (140-400); Red Blood Count 2.29 M/mcL (3.82-4.97); Red Cell Distribution Width 13.4 % (11.5-14.5); Segmented Neutrophils % 79.9 %; White Blood Count 8.7 K/mcL (4.3-11.1)
[2020-11-16 12:33] LABS: Calcium 8.1 mg/dL (8.6-10.3); Potassium 4.9 mEq/L (3.5-5.1); Troponin I 0.53 ng/mL (< 0.04)
[2020-11-16] MEDS ORDERED: 0.9 % Sodium Chloride 500 ML ONE (13:06)
[2020-11-16] MEDS ORDERED: Ondansetron 4 MG/2 ML VIAL IVP PRN (16:21)
[2020-11-16] MEDS ORDERED: Acetaminophen 325 MG TABLET PO PRN (16:21)
[2020-11-16] MEDS ORDERED: Naloxone 0.4 MG/ML INJ IVP PRN (16:21)
[2020-11-16] MEDS ORDERED: Perflutren Lipid Microsphere 1.3 ML in 0.9 % Sodium Chloride 8.7 ML IVP PRN (16:31)
[2020-11-16] MEDS ORDERED: Nitroglycerin 0.4 MG TAB.SUBL SL PRN (18:35)
[2020-11-16] MEDS ORDERED: D5% in Water 1,000 ML IVC PRN (19:05)
[2020-11-16] MEDS ORDERED: Dextrose Gel 15 GM/37.5 ML TUBE PO PRN ×2 (19:05)
[2020-11-16 20:04] LABS: Hematocrit 28.1 % (35.3-44.9); Hemoglobin 8.8 g/dL (11.5-15.4)
[2020-11-16] MEDS ORDERED: 0.9 % Sodium Chloride 250 ML ONE (20:54)
[2020-11-16] MEDS ORDERED: Insulin LISPRO 300 UNITS/3 ML VIAL SUBQ SCH (21:00)
[2020-11-16 21:06] LABS: Bacteria,Urine Few per hpf (None-Few); Bilirubin,Urine Negative (Negative); Blood,Urine Negative (Negative); Clarity,Urine Turbid (Clear); Color,Urine Yellow (Yellow); Glucose,Urine (UA) Normal (Normal); Hyaline Casts,Urine Few per lpf (None Seen); Ketones,Urine Negative (Negative); Leukocyte Esterase,Urine Trace (Negative); Mucus,Urine Few per lpf (None-Few); Nitrite,Urine Negative (Negative); Protein,Urine 70 mg/dL (Neg-Trace); Specific Gravity,Urine 1.016 (1.010-1.025); Squamous Epithelial Cell,Urine Few per hpf (None-Few); Urobilinogen,Urine Normal (Normal)
[2020-11-16 22:20] LABS: Potassium,Urine 53.4 mEq/L; Protein/Creatinine Ratio,Urine 1.1 mg/mg (0.00-0.20); Sodium, Urine 23.7 mEq/L
[2020-11-16] MEDS: Insulin DETEMIR 100 UNIT/ML X5UNITS SUBQ SCH (22:58)
[2020-11-17 02:10] LABS: Basophils % 0.3 %; Eosinophils # 0.2 K/mcL (0.0-0.6); Eosinophils % 1.7 %; Hematocrit 29.5 % (35.3-44.9); Hemoglobin 9.7 g/dL (11.5-15.4); Immature Granulocytes % 0.4 % (0-4); Lymphocytes # 1.3 K/mcL (0.6-4.6); Lymphocytes % 11.2 %; Mean Corpuscular HGB Conc 32.9 g/dL (31.6-35.5); Mean Platelet Volume 10.1 fL (9.4-12.4); Monocytes # 0.9 K/mcL (0.0-1.3); Monocytes % 7.5 %; Neutrophils # 9.1 K/mcL (1.6-8.9); Platelet Count 246 K/mcL (140-400); Red Blood Count 3.13 M/mcL (3.82-4.97); Red Cell Distribution Width 16.5 % (11.5-14.5); Segmented Neutrophils % 78.9 %; White Blood Count 11.5 K/mcL (4.3-11.1)
[2020-11-17 02:12] LABS: Mean Corpuscular Volume 94.2 fL (83.0-100.0)
[2020-11-17 02:32] LABS: Albumin 3.2 g/dL (3.5-5.7); Albumin/Globulin Ratio 1.1 (1.1-2.2); Bilirubin,Direct 0.2 mg/dL (0.0-0.2); Bilirubin,Indirect 0.4 mg/dL (0.0-1.0); Bilirubin,Total 0.6 mg/dL (0.3-1.0); Calcium 7.9 mg/dL (8.6-10.3); Globulin 2.8 g/dL (2.4-3.5); Magnesium 2.5 mg/dL (1.6-2.6); Phosphorous 5.4 mg/dL (2.7-4.5); Potassium 4.8 mEq/L (3.5-5.1)
[2020-11-17 02:44] LABS: Thyroid Stimulating Hormone 3.268 mcIU/mL (0.340-5.600)
[2020-11-17 02:55] LABS: Folate > 22.3 ng/mL (3.0-16.0)
[2020-11-17] MEDS: hydrALAZINE 25 MG TABLET PO SCH ×4 (02:55→23:52)
[2020-11-17 03:01] LABS: Vitamin B12 > 1500 pg/mL (250-1100)
[2020-11-17] MEDS: Insulin LISPRO 300 UNITS/3 ML VIAL SUBQ SCH ×3 (07:32→17:29)
[2020-11-17 08:58] LABS: Estimated Average Glucose 140 mg/dl; Hemoglobin A1C 6.5 %
[2020-11-17] MEDS ORDERED: Ranolazine 500 MG TAB.ER.12H PO SCH (09:00)
[2020-11-17] MEDS ORDERED: Metoprolol XL (24 HR) Succ 25 MG TAB.ER.24H PO SCH (09:00)
[2020-11-17] MEDS: *HR* Dextrose 50 % in Water (Vial) 50 ML VIAL IVP PRN (10:13)
[2020-11-17] MEDS: Lactobacillus 1 EACH CAP.SPRINK PO SCH (10:23)
[2020-11-17] MEDS: Pregabalin 50 MG CAPSULE PO SCH ×2 (10:23→20:05)
[2020-11-17] MEDS: Cholecalciferol (D-3) 1,000 UNIT (25MCG) TABLET PO SCH (10:24)
[2020-11-17] MEDS: Ascorbic Acid 500 MG TABLET PO SCH (10:24)
[2020-11-17] MEDS: Aspirin Enteric Coated 81 MG Tablet PO SCH (17:14)
[2020-11-17] MEDS: Cyanocobalamin (B-12) 1,000 MCG TABLET PO SCH (17:14)
[2020-11-17] MEDS: Albumin 25% 25gram/100mL 25 GM/100 ML IV.SOLN IVPB SCH ×2 (17:14→23:06)
[2020-11-17] MEDS: Ranolazine 500 MG TAB.ER.12H PO SCH (20:05)
[2020-11-17] MEDS: Metoprolol XL (24 HR) Succ 25 MG TAB.ER.24H PO SCH (20:05)
[2020-11-17] MEDS: Insulin DETEMIR 100 UNIT/ML X5UNITS SUBQ SCH (20:07)
[2020-11-18] MEDS ORDERED: *HR* Labetalol 20 MG/4 ML SYRINGE IVP ONE (04:17)
[2020-11-18 04:23] LABS: Basophils # 0.1 K/mcL (0.0-0.2); Basophils % 0.8 %; Eosinophils # 0.4 K/mcL (0.0-0.6); Hematocrit 32.5 % (35.3-44.9); Hemoglobin 10.3 g/dL (11.5-15.4); Immature Granulocytes % 0.4 % (0-4); Lymphocytes # 1.7 K/mcL (0.6-4.6); Lymphocytes % 16.5 %; Mean Corpuscular HGB Conc 31.7 g/dL (31.6-35.5); Mean Corpuscular Hemoglobin 31.2 pg (28.0-33.3); Mean Corpuscular Volume 98.5 fL (83.0-100.0); Mean Platelet Volume 10.2 fL (9.4-12.4); Monocytes % 9.7 %; Neutrophils # 7.2 K/mcL (1.6-8.9); Platelet Count 249 K/mcL (140-400); Red Cell Distribution Width 16.5 % (11.5-14.5); Segmented Neutrophils % 68.6 %; White Blood Count 10.5 K/mcL (4.3-11.1)
[2020-11-18 04:42] LABS: Calcium 8.2 mg/dL (8.6-10.3); Magnesium 2.5 mg/dL (1.6-2.6); Potassium 4.9 mEq/L (3.5-5.1)
[2020-11-18] MEDS: Ranolazine 500 MG TAB.ER.12H PO SCH ×2 (07:42→20:57)
[2020-11-18] MEDS: Metoprolol XL (24 HR) Succ 25 MG TAB.ER.24H PO SCH ×2 (07:42→20:58)
[2020-11-18] MEDS: Ascorbic Acid 500 MG TABLET PO SCH (07:43)
[2020-11-18] MEDS: Cholecalciferol (D-3) 1,000 UNIT (25MCG) TABLET PO SCH (07:43)
[2020-11-18] MEDS: Lactobacillus 1 EACH CAP.SPRINK PO SCH (07:43)
[2020-11-18] MEDS: Albumin 25% 25gram/100mL 25 GM/100 ML IV.SOLN IVPB SCH (07:43)
[2020-11-18] MEDS: calcitrioL 0.25 MCG CAPSULE PO SCH (07:43)
[2020-11-18] MEDS: Insulin LISPRO 300 UNITS/3 ML VIAL SUBQ SCH ×3 (07:43→16:50)
[2020-11-18] MEDS: hydrALAZINE 25 MG TABLET PO SCH ×2 (07:43→17:34)
[2020-11-18] MEDS: Pregabalin 50 MG CAPSULE PO SCH ×2 (07:43→20:57)
[2020-11-18] MEDS: Insulin DETEMIR 100 UNIT/ML X5UNITS SUBQ SCH ×2 (07:44→21:00)
[2020-11-18] MEDS: Cyanocobalamin (B-12) 1,000 MCG TABLET PO SCH (17:34)
[2020-11-18] MEDS: Aspirin Enteric Coated 81 MG Tablet PO SCH (17:34)
[2020-11-19] MEDS: hydrALAZINE 25 MG TABLET PO SCH ×4 (00:34→18:12)
[2020-11-19 04:52] LABS: Basophils % 0.4 %; Eosinophils % 5.3 %; Hematocrit 29.7 % (35.3-44.9); Hemoglobin 9.3 g/dL (11.5-15.4); Immature Granulocytes % 0.4 % (0-4); Lymphocytes % 14.9 %; Mean Corpuscular HGB Conc 31.3 g/dL (31.6-35.5); Mean Platelet Volume 10.2 fL (9.4-12.4); Platelet Count 212 K/mcL (140-400); White Blood Count 7.8 K/mcL (4.3-11.1)
[2020-11-19 04:53] LABS: Eosinophils # 0.4 K/mcL (0.0-0.6); Lymphocytes # 1.2 K/mcL (0.6-4.6); Monocytes # 0.9 K/mcL (0.0-1.3); Neutrophils # 5.2 K/mcL (1.6-8.9)
[2020-11-19 05:08] LABS: Magnesium 2.6 mg/dL (1.6-2.6); Phosphorous 5.1 mg/dL (2.7-4.5)
[2020-11-19 05:09] LABS: Calcium 7.9 mg/dL (8.6-10.3); Potassium 5.3 mEq/L (3.5-5.1)
[2020-11-19] MEDS ORDERED: 0.9 % Sodium Chloride 250 ML IVC PRN (07:05)
[2020-11-19] MEDS ORDERED: 0.9 % Sodium Chloride 1,000 ML PRIME SCH (07:15)
[2020-11-19] MEDS: Insulin LISPRO 300 UNITS/3 ML VIAL SUBQ SCH ×3 (07:30→17:16)
[2020-11-19] MEDS: Insulin DETEMIR 100 UNIT/ML X5UNITS SUBQ SCH ×2 (07:30→21:08)
[2020-11-19] MEDS: Cholecalciferol (D-3) 1,000 UNIT (25MCG) TABLET PO SCH (07:58)
[2020-11-19] MEDS: Ascorbic Acid 500 MG TABLET PO SCH (07:58)
[2020-11-19] MEDS: Metoprolol XL (24 HR) Succ 25 MG TAB.ER.24H PO SCH ×2 (07:58→21:09)
[2020-11-19] MEDS: Lactobacillus 1 EACH CAP.SPRINK PO SCH (07:58)
[2020-11-19] MEDS: Pregabalin 50 MG CAPSULE PO SCH ×2 (07:58→21:09)
[2020-11-19] MEDS: Ranolazine 500 MG TAB.ER.12H PO SCH ×2 (07:59→21:10)
[2020-11-19] MEDS ORDERED: Heparin 1,000 UNITS/500 mL 500 ML ONE ×2 (10:08→13:03)
[2020-11-19] MEDS ORDERED: *HR* Heparin 5,000 UNIT/ML VIAL ONE (12:22)
[2020-11-19] MEDS ORDERED: Lidocaine/EPI 1:100k 1% 50 ML VIAL ONE (13:03)
[2020-11-19 15:07] LABS: Hepatitis B Surface Antigen Nonreactive (Nonreactive)
[2020-11-19 15:22] LABS: Hepatitis B Surface Antibody < 3.10 mIU/mL
[2020-11-19] MEDS: Aspirin Enteric Coated 81 MG Tablet PO SCH (17:17)
[2020-11-19] MEDS: Cyanocobalamin (B-12) 1,000 MCG TABLET PO SCH (17:18)
[2020-11-20] MEDS: hydrALAZINE 25 MG TABLET PO SCH ×3 (00:15→14:47)
[2020-11-20] MEDS: *HR* Dextrose 50 % in Water (Vial) 50 ML VIAL IVP PRN ×3 (04:20→07:25)
[2020-11-20] MEDS ORDERED: 0.9 % Sodium Chloride 250 ML IVC PRN (07:01)
[2020-11-20 07:17] LABS: Basophils % 0.4 %; Eosinophils # 0.2 K/mcL (0.0-0.6); Eosinophils % 2.3 %; Hematocrit 28.6 % (35.3-44.9); Hemoglobin 9.1 g/dL (11.5-15.4); Immature Granulocytes % 0.6 % (0-4); Lymphocytes # 0.5 K/mcL (0.6-4.6); Lymphocytes % 6.6 %; Mean Corpuscular HGB Conc 31.8 g/dL (31.6-35.5); Mean Corpuscular Hemoglobin 31.3 pg (28.0-33.3); Mean Corpuscular Volume 98.3 fL (83.0-100.0); Mean Platelet Volume 10.4 fL (9.4-12.4); Monocytes # 0.7 K/mcL (0.0-1.3); Monocytes % 10.1 %; Neutrophils # 5.8 K/mcL (1.6-8.9); Platelet Count 171 K/mcL (140-400); Red Blood Count 2.91 M/mcL (3.82-4.97); Red Cell Distribution Width 16.4 % (11.5-14.5); White Blood Count 7.3 K/mcL (4.3-11.1)
[2020-11-20] MEDS ORDERED: *HR* Dextrose 50 % in Water (Vial) 50 ML VIAL ONE (07:17)
[2020-11-20] MEDS ORDERED: D5% in Water 1,000 ML IVC ONE (07:22)
[2020-11-20] MEDS: Lactobacillus 1 EACH CAP.SPRINK PO SCH (07:46)
[2020-11-20] MEDS: Ranolazine 500 MG TAB.ER.12H PO SCH (07:46)
[2020-11-20] MEDS: calcitrioL 0.25 MCG CAPSULE PO SCH (07:46)
[2020-11-20] MEDS: Cholecalciferol (D-3) 1,000 UNIT (25MCG) TABLET PO SCH (07:46)
[2020-11-20] MEDS: Insulin LISPRO 300 UNITS/3 ML VIAL SUBQ SCH ×3 (07:46→16:36)
[2020-11-20] MEDS: Ascorbic Acid 500 MG TABLET PO SCH (07:46)
[2020-11-20] MEDS: Metoprolol XL (24 HR) Succ 25 MG TAB.ER.24H PO SCH (07:46)
[2020-11-20] MEDS: Pregabalin 50 MG CAPSULE PO SCH (07:46)
[2020-11-20] MEDS: Insulin DETEMIR 100 UNIT/ML X5UNITS SUBQ SCH (07:57)
[2020-11-20] MEDS ORDERED: Insulin DETEMIR 100 UNIT/ML X5UNITS SUBQ SCH (09:00)
[2020-11-20 09:24] LABS: Calcium 7.9 mg/dL (8.6-10.3); Potassium 3.9 mEq/L (3.5-5.1)
[2020-11-20] MEDS ORDERED: *HR* Heparin 10,000 UNIT/10 ML VIAL IV PRN (10:40)
[2020-11-20 15:29] VITALS: BP 128/66
== END 2020-11-20 16:43 | disposition short-term general hospital (02) | DRG 280 ==
LOC: 2ANU 11:00 → EMEROOARM 11:00 → SUATTDRO 15:44 → 2ANU 16:40
PROVIDERS: ADMIT Pharmacist; ATTEND Pharmacist

== ENCOUNTER 2022-02-17 18:50 | Inpatient (IN) ==
[2022-02-17] MEDS ORDERED: Ondansetron 4 MG/2 ML VIAL IVP PRN (22:16)
[2022-02-17] MEDS ORDERED: Melatonin 3 MG TABLET PO PRN (22:16)
[2022-02-17] MEDS ORDERED: Naloxone 0.4 MG/ML INJ IVP PRN (22:16)
[2022-02-17] MEDS ORDERED: *HR* Dextrose 50 % in Water (Syg) 50 ML SYRINGE IVP PRN (22:34)
[2022-02-17] MEDS ORDERED: Dextrose Gel 15 GM/37.5 ML TUBE PO PRN ×2 (22:34)
[2022-02-17] MEDS ORDERED: D5% in Water 1,000 ML IVC PRN (22:34)
[2022-02-17] MEDS: Acetaminophen 325 MG TABLET PO PRN (23:03)
[2022-02-18] MEDS: Insulin LISPRO 300 UNITS/3 ML VIAL SUBQ SCH ×4 (00:01→17:32)
[2022-02-18 01:00] LABS: Adenovirus Not Detected (Not Detect); Bordetella Pertussis Not Detected (Not Detect); Chlamydophila pneumoniae Not Detected (Not Detect); Coronavirus 229E Not Detected (Not Detect); Coronavirus HKU1 Not Detected (Not Detect); Coronavirus NL63 Not Detected (Not Detect); Coronavirus OC43 Not Detected (Not Detect); Human Metapneumovirus Not Detected (Not Detect); Human Rhinovirus/Enterovirus Not Detected (Not Detect); Influenza A Subtype 2009 H1 Not Detected (Not Detect); Influenza B Not Detected (Not Detect); Mycoplasma pneumoniae Not Detected (Not Detect); Parainfluenza Virus 1 Not Detected (Not Detect); Parainfluenza Virus 2 Not Detected (Not Detect); Parainfluenza Virus 3 Not Detected (Not Detect); Parainfluenza Virus 4 Not Detected (Not Detect); Respiratory Syncytial Virus Not Detected (Not Detect); SARS-CoV-2 Not Detected (Not Detect)
[2022-02-18] MEDS ORDERED: Vancomycin 1 EACH in 0.9 % Sodium Chloride 250 ML IVPB PRN (01:00)
[2022-02-18 01:06] LABS: Eosinophils % 0.1 %; Hemoglobin 9.6 g/dL (11.5-15.4); Immature Granulocytes % 1.9 % (0-4)
[2022-02-18 01:08] LABS: Basophils # 0.1 K/mcL (0.0-0.2); Basophils % 0.3 %; Hematocrit 29.8 % (35.3-44.9); Lymphocytes # 0.5 K/mcL (0.6-4.6); Lymphocytes % 2.1 %; Mean Corpuscular HGB Conc 32.2 g/dL (31.6-35.5); Mean Corpuscular Hemoglobin 31.1 pg (28.0-33.3); Mean Corpuscular Volume 96.4 fL (83.0-100.0); Monocytes # 1.1 K/mcL (0.0-1.3); Monocytes % 4.5 %; Neutrophils # 23.1 K/mcL (1.6-8.9); Platelet Count 179 K/mcL (140-400); Red Blood Count 3.09 M/mcL (3.82-4.97); Segmented Neutrophils % 91.1 %; White Blood Count 25.4 K/mcL (4.3-11.1)
[2022-02-18 01:14] LABS: INR 1.2; Prothrombin Time 13.7 Seconds (9.4-12.1)
[2022-02-18 01:16] LABS: Activated Partial Thrombo Time 34.9 Seconds (26.0-36.0)
[2022-02-18 01:18] LABS: Albumin 3.1 g/dL (3.5-5.7); Albumin/Globulin Ratio 0.9 (1.1-2.2); Calcium 8.3 mg/dL (8.6-10.3); Globulin 3.3 g/dL (2.4-3.5); Lactate Dehydrogenase 266 Units/L (140-271); Phosphorous 4.5 mg/dL (2.7-4.5); Potassium 4.5 mEq/L (3.5-5.1); Total Protein 6.4 g/dL (6.4-8.9); Total Protein 6.5 g/dL (6.4-8.9)
[2022-02-18] MEDS: Piperacillin/Tazobactam 3.375 GM in 0.9 % Sodium Chloride Mini Bag 100 ML IVPB SCH ×2 (05:07→18:08)
[2022-02-18] MEDS: *HR* Heparin 5,000 UNIT/ML VIAL SQ SCH ×3 (05:08→19:48)
[2022-02-18 07:29] LABS: Bilirubin,Urine Negative (Negative); Blood,Urine Negative (Negative); Clarity,Urine Clear (Clear); Color,Urine Yellow (Yellow); Glucose,Urine (UA) Normal (Normal); Ketones,Urine Negative (Negative); Leukocyte Esterase,Urine Negative (Negative); Mucus,Urine Few per lpf (None-Few); Nitrite,Urine Negative (Negative); PH,Urine 6.5 pH Units (5.0-8.0); Protein,Urine >=300 mg/dL (Neg-Trace); RBC,Urine 0-3 per hpf (0-3); Specific Gravity,Urine 1.021 (1.010-1.025); Squamous Epithelial Cell,Urine Few per hpf (None-Few); Urobilinogen,Urine Normal (Normal)
[2022-02-18] MEDS ORDERED: 0.9 % Sodium Chloride 250 ML IVC PRN (09:22)
[2022-02-18] MEDS ORDERED: *HR* Heparin 10,000 UNIT/10 ML VIAL IV PRN ×2 (09:22)
[2022-02-18] MEDS ORDERED: 0.9 % Sodium Chloride 2,000 ML PRIME SCH (09:30)
[2022-02-18 15:14] LABS: Hepatitis B Surface Antibody < 3.10 mIU/mL
[2022-02-18 15:25] LABS: Hepatitis B Surface Antigen Nonreactive (Nonreactive)
[2022-02-18] MEDS: Aspirin Enteric Coated 81 MG Tablet PO SCH (17:34)
[2022-02-19] MEDS: Insulin LISPRO 300 UNITS/3 ML VIAL SUBQ SCH ×4 (01:55→17:29)
[2022-02-19] MEDS: *HR* Heparin 5,000 UNIT/ML VIAL SQ SCH ×3 (05:15→22:09)
[2022-02-19] MEDS: Piperacillin/Tazobactam 3.375 GM in 0.9 % Sodium Chloride Mini Bag 100 ML IVPB SCH ×2 (05:16→17:29)
[2022-02-19] MEDS ORDERED: *HR* Heparin 10,000 UNIT/10 ML VIAL IV PRN ×2 (08:21)
[2022-02-19] MEDS ORDERED: 0.9 % Sodium Chloride 250 ML IVC PRN (08:21)
[2022-02-19 08:40] LABS: Magnesium 2.1 mg/dL (1.6-2.6)
[2022-02-19 09:31] LABS: Basophils # 0.1 K/mcL (0.0-0.2); Basophils % 0.6 %; Eosinophils # 0.3 K/mcL (0.0-0.6); Eosinophils % 2.3 %; Hematocrit 29.7 % (35.3-44.9); Hemoglobin 9.3 g/dL (11.5-15.4); Immature Granulocytes % 0.5 % (0-4); Lymphocytes # 0.8 K/mcL (0.6-4.6); Lymphocytes % 6.5 %; Mean Corpuscular HGB Conc 31.3 g/dL (31.6-35.5); Mean Corpuscular Hemoglobin 30.9 pg (28.0-33.3); Mean Corpuscular Volume 98.7 fL (83.0-100.0); Mean Platelet Volume 10.5 fL (9.4-12.4); Neutrophils # 9.8 K/mcL (1.6-8.9); Platelet Count 175 K/mcL (140-400); Red Blood Count 3.01 M/mcL (3.82-4.97); Red Cell Distribution Width 18.2 % (11.5-14.5); Segmented Neutrophils % 82.1 %
[2022-02-19 09:32] LABS: White Blood Count 11.9 K/mcL (4.3-11.1)
[2022-02-19 09:50] LABS: Calcium 7.8 mg/dL (8.6-10.3); Magnesium 1.9 mg/dL (1.6-2.6); Potassium 3.7 mEq/L (3.5-5.1)
[2022-02-19] MEDS: Metoprolol XL (24 HR) Succ 50 MG TAB.ER.24H PO SCH (10:18)
[2022-02-19] MEDS: Vitamin B Complex/Vit C/Vit E 1 EACH TABLET PO SCH (10:18)
[2022-02-19] MEDS: Folic Acid 1 MG TABLET PO SCH (10:19)
[2022-02-19] MEDS: (Ubidecarenone/Vit E/Vit E Mix [Co-Enzyme Q10 100 Mg PO SCH ×2 (10:19→10:35)
[2022-02-19] MEDS: Ranolazine 500 MG TAB.ER.12H PO SCH ×2 (10:19→22:09)
[2022-02-19] MEDS: Ascorbic Acid 500 MG TABLET PO SCH (10:19)
[2022-02-19] MEDS: Calcium Acetate 667 MG CAPSULE PO SCH ×2 (12:30→17:28)
[2022-02-19] MEDS ORDERED: Vancomycin 500 MG in 0.9 % Sodium Chloride Mini Bag 100 ML IVPB ONE (16:00)
[2022-02-19] MEDS: Aspirin Enteric Coated 81 MG Tablet PO SCH (17:28)
[2022-02-19] MEDS ORDERED: Insulin LISPRO 300 UNITS/3 ML VIAL SUBQ SCH (21:00)
[2022-02-19] MEDS: Fluticasone Propionate Nasal 50 MCG/SPRAY BOTTLE NS SCH (22:10)
[2022-02-20 00:37] LABS: Basophils % 0.4 %; Eosinophils # 0.3 K/mcL (0.0-0.6); Eosinophils % 3.4 %; Hematocrit 29.2 % (35.3-44.9); Hemoglobin 9.3 g/dL (11.5-15.4); Immature Granulocytes % 0.4 % (0-4); Lymphocytes # 0.6 K/mcL (0.6-4.6); Lymphocytes % 8.2 %; Mean Corpuscular HGB Conc 31.8 g/dL (31.6-35.5); Mean Corpuscular Hemoglobin 31.3 pg (28.0-33.3); Mean Corpuscular Volume 98.3 fL (83.0-100.0); Mean Platelet Volume 10.7 fL (9.4-12.4); Monocytes # 0.8 K/mcL (0.0-1.3); Monocytes % 11.1 %; Neutrophils # 5.7 K/mcL (1.6-8.9); Platelet Count 155 K/mcL (140-400); Red Blood Count 2.97 M/mcL (3.82-4.97); Segmented Neutrophils % 76.5 %; White Blood Count 7.4 K/mcL (4.3-11.1)
[2022-02-20 00:52] LABS: Calcium 8.1 mg/dL (8.6-10.3); Phosphorous 2.6 mg/dL (2.7-4.5); Potassium 4.1 mEq/L (3.5-5.1)
[2022-02-20] MEDS: Acetaminophen 325 MG TABLET PO PRN (05:45)
[2022-02-20] MEDS: Piperacillin/Tazobactam 3.375 GM in 0.9 % Sodium Chloride Mini Bag 100 ML IVPB SCH ×2 (05:46→17:40)
[2022-02-20] MEDS: *HR* Heparin 5,000 UNIT/ML VIAL SQ SCH ×3 (05:46→22:19)
[2022-02-20] MEDS: Calcium Acetate 667 MG CAPSULE PO SCH ×3 (07:56→16:31)
[2022-02-20] MEDS: Ranolazine 500 MG TAB.ER.12H PO SCH ×2 (07:56→22:20)
[2022-02-20] MEDS: (Ubidecarenone/Vit E/Vit E Mix [Co-Enzyme Q10 100 Mg PO SCH (07:56)
[2022-02-20] MEDS: Insulin LISPRO 300 UNITS/3 ML VIAL SUBQ SCH (07:57)
[2022-02-20] MEDS: Ascorbic Acid 500 MG TABLET PO SCH (07:57)
[2022-02-20] MEDS: Metoprolol XL (24 HR) Succ 50 MG TAB.ER.24H PO SCH (07:57)
[2022-02-20] MEDS: Folic Acid 1 MG TABLET PO SCH (07:57)
[2022-02-20] MEDS: Cholecalciferol (D-3) 1,000 UNIT (25MCG) TABLET PO SCH (07:57)
[2022-02-20] MEDS: Vitamin B Complex/Vit C/Vit E 1 EACH TABLET PO SCH (07:57)
[2022-02-20] MEDS: Insulin Pump Cart,Cont Inf,Rf [Insulin Pump] 1 EACH SUBQ SCH (12:39)
[2022-02-20] MEDS: Aspirin Enteric Coated 81 MG Tablet PO SCH (16:32)
[2022-02-21] MEDS: Fluticasone Propionate Nasal 50 MCG/SPRAY BOTTLE NS SCH ×2 (00:10→22:59)
[2022-02-21 03:38] LABS: Basophils % 0.6 %; Eosinophils # 0.3 K/mcL (0.0-0.6); Eosinophils % 5.2 %; Hematocrit 31.6 % (35.3-44.9); Hemoglobin 9.7 g/dL (11.5-15.4); Immature Granulocytes % 0.5 % (0-4); Lymphocytes % 15.2 %; Mean Corpuscular HGB Conc 30.7 g/dL (31.6-35.5); Mean Corpuscular Hemoglobin 30.4 pg (28.0-33.3); Mean Corpuscular Volume 99.1 fL (83.0-100.0); Mean Platelet Volume 10.7 fL (9.4-12.4); Monocytes # 0.9 K/mcL (0.0-1.3); Monocytes % 13.9 %; Neutrophils # 4.2 K/mcL (1.6-8.9); Platelet Count 166 K/mcL (140-400); Red Blood Count 3.19 M/mcL (3.82-4.97); Red Cell Distribution Width 17.8 % (11.5-14.5); Segmented Neutrophils % 64.6 %; White Blood Count 6.5 K/mcL (4.3-11.1)
[2022-02-21 03:52] LABS: Calcium 8.1 mg/dL (8.6-10.3); Potassium 4.1 mEq/L (3.5-5.1)
[2022-02-21] MEDS: Piperacillin/Tazobactam 3.375 GM in 0.9 % Sodium Chloride Mini Bag 100 ML IVPB SCH ×2 (06:30→21:42)
[2022-02-21] MEDS: *HR* Heparin 5,000 UNIT/ML VIAL SQ SCH ×3 (06:37→21:43)
[2022-02-21] MEDS: Ascorbic Acid 500 MG TABLET PO SCH (08:08)
[2022-02-21] MEDS: Ranolazine 500 MG TAB.ER.12H PO SCH ×2 (08:08→21:42)
[2022-02-21] MEDS: Cholecalciferol (D-3) 1,000 UNIT (25MCG) TABLET PO SCH (08:08)
[2022-02-21] MEDS: Folic Acid 1 MG TABLET PO SCH (08:09)
[2022-02-21] MEDS: Calcium Acetate 667 MG CAPSULE PO SCH ×3 (08:09→17:43)
[2022-02-21] MEDS: Metoprolol XL (24 HR) Succ 50 MG TAB.ER.24H PO SCH (08:09)
[2022-02-21] MEDS: Vitamin B Complex/Vit C/Vit E 1 EACH TABLET PO SCH (08:09)
[2022-02-21] MEDS: (Ubidecarenone/Vit E/Vit E Mix [Co-Enzyme Q10 100 Mg PO SCH (08:10)
[2022-02-21] MEDS ORDERED: 0.9 % Sodium Chloride 250 ML IVC PRN (08:28)
[2022-02-21] MEDS ORDERED: *HR* Heparin 10,000 UNIT/10 ML VIAL IV PRN ×2 (08:28)
[2022-02-21] MEDS: Insulin Pump Cart,Cont Inf,Rf [Insulin Pump] 1 EACH SUBQ SCH (12:15)
[2022-02-21] MEDS: Acetaminophen 325 MG TABLET PO PRN (14:36)
[2022-02-21] MEDS ORDERED: *HR* HYDROcodone/Acet 5/325 mg TABLET PO ONE (17:47)
[2022-02-21] MEDS: Aspirin Enteric Coated 81 MG Tablet PO SCH (18:14)
[2022-02-21] MEDS ORDERED: *HR* Labetalol 20 MG/4 ML SYRINGE IVP ONE (23:21)
[2022-02-22 01:05] LABS: Basophils # 0.1 K/mcL (0.0-0.2); Basophils % 0.9 %; Eosinophils # 0.3 K/mcL (0.0-0.6); Eosinophils % 4.4 %; Hematocrit 35.5 % (35.3-44.9); Hemoglobin 10.9 g/dL (11.5-15.4); Immature Granulocytes % 0.8 % (0-4); Lymphocytes % 16.1 %; Mean Corpuscular HGB Conc 30.7 g/dL (31.6-35.5); Mean Corpuscular Hemoglobin 29.8 pg (28.0-33.3); Mean Platelet Volume 10.7 fL (9.4-12.4); Monocytes # 0.7 K/mcL (0.0-1.3); Monocytes % 11.3 %; Neutrophils # 4.2 K/mcL (1.6-8.9); Platelet Count 168 K/mcL (140-400); Red Blood Count 3.66 M/mcL (3.82-4.97); Segmented Neutrophils % 66.5 %; White Blood Count 6.4 K/mcL (4.3-11.1)
[2022-02-22 01:23] LABS: Calcium 8.4 mg/dL (8.6-10.3); Potassium 3.8 mEq/L (3.5-5.1)
[2022-02-22] MEDS ORDERED: *HR* Labetalol 20 MG/4 ML SYRINGE IVP ONE (04:29)
[2022-02-22] MEDS: *HR* Heparin 5,000 UNIT/ML VIAL SQ SCH ×3 (05:02→19:58)
[2022-02-22] MEDS: Calcium Acetate 667 MG CAPSULE PO SCH ×3 (08:01→16:20)
[2022-02-22] MEDS: Ranolazine 500 MG TAB.ER.12H PO SCH ×2 (08:01→19:58)
[2022-02-22] MEDS: Ascorbic Acid 500 MG TABLET PO SCH (08:01)
[2022-02-22] MEDS: Cholecalciferol (D-3) 1,000 UNIT (25MCG) TABLET PO SCH (08:01)
[2022-02-22] MEDS: Vitamin B Complex/Vit C/Vit E 1 EACH TABLET PO SCH (08:02)
[2022-02-22] MEDS: Folic Acid 1 MG TABLET PO SCH (08:02)
[2022-02-22] MEDS: Piperacillin/Tazobactam 3.375 GM in 0.9 % Sodium Chloride Mini Bag 100 ML IVPB SCH ×2 (08:02→17:03)
[2022-02-22] MEDS: Metoprolol XL (24 HR) Succ 50 MG TAB.ER.24H PO SCH (08:02)
[2022-02-22] MEDS: (Ubidecarenone/Vit E/Vit E Mix [Co-Enzyme Q10 100 Mg PO SCH (08:03)
[2022-02-22] MEDS: Acetaminophen 325 MG TABLET PO PRN ×2 (11:34→21:26)
[2022-02-22] MEDS: Insulin Pump Cart,Cont Inf,Rf [Insulin Pump] 1 EACH SUBQ SCH (11:49)
[2022-02-22] MEDS: amLODIPine 5 MG TABLET PO ONE ×2 (12:03→12:07)
[2022-02-22] MEDS: Aspirin Enteric Coated 81 MG Tablet PO SCH (17:03)
[2022-02-22] MEDS: Fluticasone Propionate Nasal 50 MCG/SPRAY BOTTLE NS SCH (19:58)
[2022-02-23 04:36] LABS: Basophils # 0.1 K/mcL (0.0-0.2); Basophils % 0.9 %; Eosinophils # 0.3 K/mcL (0.0-0.6); Eosinophils % 4.5 %; Hematocrit 33.8 % (35.3-44.9); Hemoglobin 10.8 g/dL (11.5-15.4); Immature Granulocytes % 0.7 % (0-4); Lymphocytes # 1.1 K/mcL (0.6-4.6); Lymphocytes % 14.6 %; Mean Corpuscular Hemoglobin 30.8 pg (28.0-33.3); Mean Corpuscular Volume 96.3 fL (83.0-100.0); Monocytes # 0.8 K/mcL (0.0-1.3); Monocytes % 11.2 %; Neutrophils # 5.1 K/mcL (1.6-8.9); Platelet Count 178 K/mcL (140-400); Red Blood Count 3.51 M/mcL (3.82-4.97); Red Cell Distribution Width 18.1 % (11.5-14.5); Segmented Neutrophils % 68.1 %; White Blood Count 7.5 K/mcL (4.3-11.1)
[2022-02-23 04:54] LABS: Calcium 8.4 mg/dL (8.6-10.3); Potassium 4.3 mEq/L (3.5-5.1)
[2022-02-23] MEDS: Piperacillin/Tazobactam 3.375 GM in 0.9 % Sodium Chloride Mini Bag 100 ML IVPB SCH (05:30)
[2022-02-23] MEDS: *HR* Heparin 5,000 UNIT/ML VIAL SQ SCH ×2 (05:31→13:20)
[2022-02-23] MEDS: Acetaminophen 325 MG TABLET PO PRN (05:33)
[2022-02-23] MEDS: Cholecalciferol (D-3) 1,000 UNIT (25MCG) TABLET PO SCH (07:20)
[2022-02-23] MEDS: Folic Acid 1 MG TABLET PO SCH (07:21)
[2022-02-23] MEDS: Ascorbic Acid 500 MG TABLET PO SCH (07:21)
[2022-02-23] MEDS: Calcium Acetate 667 MG CAPSULE PO SCH ×2 (07:21→12:23)
[2022-02-23] MEDS: Ranolazine 500 MG TAB.ER.12H PO SCH (07:21)
[2022-02-23] MEDS: Metoprolol XL (24 HR) Succ 50 MG TAB.ER.24H PO SCH (07:21)
[2022-02-23] MEDS: (Ubidecarenone/Vit E/Vit E Mix [Co-Enzyme Q10 100 Mg PO SCH (07:21)
[2022-02-23] MEDS: Vitamin B Complex/Vit C/Vit E 1 EACH TABLET PO SCH (07:21)
[2022-02-23 10:37] VITALS: BP 162/78; PULSE 69; TEMP 97.5; O2SAT 98
[2022-02-23] MEDS: Insulin Pump Cart,Cont Inf,Rf [Insulin Pump] 1 EACH SUBQ SCH (12:23)
== END 2022-02-23 15:51 | disposition home or self-care (01) | DRG 871 ==
LOC: 2ANU → SUATTDRO 21:54
PROVIDERS: ADMIT Internal Medicine; ATTEND Family Medicine